=== PATIENT | female | born 1995 | race Two or more races ===

== ENCOUNTER 2019-02-06 21:29 | Inpatient (IN) | payer SELFPAY ==
[~2019-02-06] VITALS: Ht 154.9 cm; Wt 70.8 kg
[2019-02-06] MEDS: METHYLERGONOVINE MALEATE 0.2 MG TABLET PO SCH (21:00)
[~2019-02-06 21:29] MED LIST: FERR325T14 PO; PREN-6 PO
[2019-02-06] MEDS ORDERED: IV RINGERS,LACTATED 1000ML 1,000 ML IV SCH (21:39)
[2019-02-06] MEDS ORDERED: 0.9 % SODIUM CHLORIDE 10 ML DISP.SYRIN. IV PRN (21:45)
[2019-02-06] MEDS ORDERED: NALBUPHINE 10 MG/ML AMPUL. IV PRN ×2 (21:45)
[2019-02-06] MEDS ORDERED: ACETAMINOPHEN 325 MG TABLET. PO PRN (21:45)
[2019-02-06] MEDS ORDERED: MAG HYDROX/ALUMINUM HYD/SIMETH 30 ML ORAL.SUSP PO PRN (21:45)
[2019-02-06] MEDS ORDERED: fentaNYL PF VIAL 100 MCG/2 ML VIAL IV PRN ×3 (21:45)
[2019-02-06] MEDS ORDERED: BUTORPHANOL 2 MG/ML VIAL. IV PRN ×2 (21:45)
[2019-02-06] MEDS ORDERED: OXYTOCIN 30 UNIT/500 ML PREMIX 500 ML IV PRN (21:45)
[2019-02-06] MEDS ORDERED: ONDANSETRON PF 4 MG/2 ML VIAL. IV PRN (21:45)
[2019-02-06 21:51] VITALS: BP 125/75
[2019-02-06 22:39] LABS: BILIRUBIN,URINE NEGATIVE (NEG); CLARITY,URINE CLEAR; COLOR,URINE YELLOW; NITRITE,URINE NEGATIVE (NEG); PROTEIN,URINE 100 mg/dL (NEG-TRACE)
[2019-02-06 22:43] LABS: BACTERIA,URINE FEW /HPF (0-FEW); RBC,URINE 0 /HPF (0-2); SQUAMOUS EPITHELIAL CELL,UR MOD /LPF
[2019-02-06 22:46] LABS: BASO % 0 % (0-3); EOS # 0.1 x10^3/uL (0.0-0.7); EOS % 1 % (0-3); HEMATOCRIT 22.2 % (36.0-47.0); LYMPH # 1.7 x10^3/uL (1.0-4.8); LYMPH % 20 % (24-48); MEAN CORPUSCULAR HEMOGLOBIN 19 pg (25-35); MEAN CORPUSCULAR HGB CONC 31 g/dL (31-37); MEAN CORPUSCULAR VOLUME 62 fL (79-100); MONO # 0.7 x10^3/uL (0.0-1.1); MONO % 8 % (0-9); NEUT # 6.1 x10^3uL (1.8-7.7); NEUT % 71 % (31-73); PLATELET COUNT 120 x10^3/uL (140-400); RED BLOOD COUNT 3.59 x10^6/uL (3.50-5.40); RED CELL DISTRIBUTION WIDTH 19.5 % (11.5-14.5); WHITE BLOOD COUNT 8.7 x10^3/uL (4.0-11.0)
[2019-02-06 22:47] LABS: HEMOGLOBIN 6.9 g/dL (12.0-15.5)
[2019-02-06 23:02] LABS: PLT ESTIMATE ADEQUATE (ADEQUATE)
[2019-02-06 23:04] LABS: ANISOCYTOSIS SLIGHT; HYPOCHROMIA MOD; MICROCYTOSIS MARKED; OVALOCYTES FEW; POIKILOCYTOSIS SLIGHT
[2019-02-07 02:12] VITALS: BP 117/64
[2019-02-07 02:26] VITALS: BP 116/59
[2019-02-07 03:22] VITALS: BP 121/58
[2019-02-07] MEDS: IV RINGERS,LACTATED 1000ML 1,000 ML IV SCH ×2 (03:45→10:23)
[2019-02-07] MEDS ORDERED: OXYTOCIN 30 UNIT/500 ML PREMIX 500 ML IV PRN ×2 (06:30→12:30)
[2019-02-07 07:30] LABS: BARBITURATES NEG (NEG); BENZODIAZEPINES NEG (NEG); CANNABINOIDS NEG (NEG); COCAINE NEG (NEG); METHADONE NEG (NEG); OPIATES NEG (NEG); PHENCYCLIDINE NEG (NEG)
[2019-02-07 07:32] LABS: AMPHETAMINE/METHAMPHETAMINE NEG (NEG)
[2019-02-07 08:21] LABS: BASO % 0 % (0-3); EOS % 0 % (0-3); HEMATOCRIT 23.9 % (36.0-47.0); HEMOGLOBIN 7.5 g/dL (12.0-15.5); LYMPH # 1.7 x10^3/uL (1.0-4.8); LYMPH % 18 % (24-48); MEAN CORPUSCULAR HEMOGLOBIN 20 pg (25-35); MEAN CORPUSCULAR HGB CONC 31 g/dL (31-37); MEAN CORPUSCULAR VOLUME 64 fL (79-100); MONO # 0.6 x10^3/uL (0.0-1.1); MONO % 6 % (0-9); NEUT # 7.1 x10^3uL (1.8-7.7); NEUT % 75 % (31-73); PLATELET COUNT 112 x10^3/uL (140-400); RED BLOOD COUNT 3.72 x10^6/uL (3.50-5.40); RED CELL DISTRIBUTION WIDTH 21.2 % (11.5-14.5); WHITE BLOOD COUNT 9.5 x10^3/uL (4.0-11.0)
--- NOTE | 2019-02-07 12:27 | PDOC ---
VAGINAL DELIVERY DATE DATE: 02/07/19 TIME: 12:25 : 3 Para: 2 EDC: February 25, 2019 VAGINAL DELIVERY: VTX PLACENTA: Spontaneous SEX: Female WEIGHT Weight [ ] Nuchal Cord: No PAIN: Natural EPISIOTOMY: No EXTENSION: No EBL 300cc COMPLICATIONS None CONDITION Stable Signs of Intrauterine Infectio: None Shoulder Dystocia: No DIAGNOSIS JASON Rogel MD Feb 07, 2019 12:27
[2019-02-07] MEDS ORDERED: MAGNESIUM HYDROXIDE 2,400 MG/30 ML ORAL.SUSP. PO PRN (12:30)
[2019-02-07] MEDS ORDERED: MAG HYDROX/ALUMINUM HYD/SIMETH 30 ML ORAL.SUSP PO PRN (12:30)
[2019-02-07] MEDS ORDERED: SIMETHICONE 80 MG TAB.CHEW PO PRN (12:30)
[2019-02-07] MEDS ORDERED: 0.9 % SODIUM CHLORIDE 10 ML DISP.SYRIN. IV PRN (12:30)
[2019-02-07] MEDS ORDERED: ZOLPIDEM 5 MG TABLET. PO PRN (12:30)
[2019-02-07] MEDS ORDERED: IBUPROFEN 400 MG TABLET. PO PRN (12:30)
[2019-02-07] MEDS ORDERED: PHENYLEPH/MINERAL OIL/PETROLAT RECTAL OINTMENT 28GM TUBE. RC PRN (12:30)
[2019-02-07] MEDS ORDERED: diphenhydrAMINE HCL 25 MG CAPSULE PO PRN (12:30)
[2019-02-07] MEDS ORDERED: BENZOCAINE 20% TOPICAL AEROSOL SPRAY 57GM CAN. TP PRN (12:30)
[2019-02-07] MEDS ORDERED: ACETAMINOPHEN 325 MG TABLET. PO PRN (12:30)
[2019-02-07] MEDS ORDERED: HYDROCORTISONE 1% TOPICAL OINTMENT 30GM TUBE. TP PRN (12:30)
--- NOTE | 2019-02-07 12:33 | PDOC1 ---
OB - History Hx of Present Care: Good Care Ultrasounds: Normal mid trimester US Obstetrical Complications: None Medical Complications: None Past Family/Social History * Past Medical, Surgical, Family and Obstetric Histories reviewed from chart. Blood Type: O+ Rubella: Immune RPR/VDRL: Negative GBS Status: Negative HBsAG: Negative OB - Chief Complaint & HPI Date of Admission: Date of Admission: Feb 06, 2019 at 21:29 Chief Complaint/History : 3 Para: 2 EDC: February 25, 2019 Reason for admission: rupture of membranes Admission Nurse Assessment Rev: Yes OB - Admission Exam Physical Exam Vitals: VS - Last 72 Hours, by Label Date Time Temp Pulse Resp B/P (MAP) Pulse Ox O2 Delivery O2 Flow Rate FiO2 02/07/19 10:23 16 Room Air 02/07/19 03:22 98.6 106 20 121/58 98.6 02/07/19 02:26 98.7 118 20 116/59 98.7 02/07/19 02:12 98.6 104 20 117/64 98.6 02/06/19 21:51 98.7 103 18 125/75 (92) Room Air 98.7 HEENT: Normal, Nasal Mucosa Normal, Oropharynx Normal, Moist Membranes, Fontanelles Normal Heart: Regular Rate Lungs: Clear Extremities: Normal Pulses, No tenderness or swelling Reflexes: Normal Cervical Dilatation: 2cm Effacement: 25% Membranes: Ruptured Amniotic Fluid: Clear Heart Rate: Normal Accelerations: Accelerations Present Decelerations: Variable decelerations Short Term Variability: Present Equipment Maintenance Superintendent Variability: Moderate Assessment/Plan Assessment/Plan TIUP SROM Augment ACSVD JASON RAINEY MD Feb 07, 2019 12:33
[2019-02-07] MEDS: IBUPROFEN 400 MG TABLET. PO SCH ×2 (14:45→22:00)
[2019-02-07 15:05] VITALS: BP 108/63
[2019-02-07 16:50] VITALS: BP 103/58
[2019-02-07] MEDS ORDERED: FERROUS SULFATE 325 MG TABLET. PO SCH (17:00)
[2019-02-07] MEDS: METHYLERGONOVINE MALEATE 0.2 MG TABLET PO SCH (21:00)
[2019-02-07 21:30] VITALS: BP 108/67
[2019-02-08 05:16] VITALS: BP 119/73
--- NOTE | 2019-02-08 15:34 | PDOC ---
Provider Note Provider Note Doing well Uterus NTTP FU in AM Vital Sign - Last 24 Hours 02/07/19 02/07/19 02/08/19 16:50 21:30 05:16 Temp 97.9 98.4 97.9 97.9 98.4 97.9 Pulse 89 99 88 Resp 18 18 18 B/P (MAP) 103/58 (73) 108/67 (81) 119/73 (88) Pulse Ox 97 95 97 O2 Delivery Room Air Room Air Room Air CBC - BMP 02/08/19 06:25 JASON RAINEY MD Feb 08, 2019 15:34
[2019-02-08 17:05] VITALS: BP 122/74
[2019-02-08 21:07] VITALS: BP 116/65
[2019-02-09 05:12] VITALS: BP 112/70
--- NOTE | 2019-02-09 06:51 | NUR ---
Fentanyl PURCHASER wasted in front of Inez Valentin RN 4 mls. Unable to waste in the [employer] and the [employer]. Inez Delgado started the PURCHASER. Stopped at 0530.
[2019-02-09 08:21] LABS: BASO % 0 % (0-3); EOS # 0.1 x10^3/uL (0.0-0.7); EOS % 1 % (0-3); HEMATOCRIT 23.7 % (36.0-47.0); HEMOGLOBIN 7.3 g/dL (12.0-15.5); LYMPH # 1.9 x10^3/uL (1.0-4.8); LYMPH % 20 % (24-48); MEAN CORPUSCULAR HEMOGLOBIN 20 pg (25-35); MEAN CORPUSCULAR HGB CONC 31 g/dL (31-37); MEAN CORPUSCULAR VOLUME 65 fL (79-100); MONO # 0.7 x10^3/uL (0.0-1.1); MONO % 7 % (0-9); NEUT # 6.7 x10^3uL (1.8-7.7); NEUT % 72 % (31-73); PLATELET COUNT 119 x10^3/uL (140-400); RED BLOOD COUNT 3.64 x10^6/uL (3.50-5.40); RED CELL DISTRIBUTION WIDTH 21.6 % (11.5-14.5); WHITE BLOOD COUNT 9.4 x10^3/uL (4.0-11.0)
--- NOTE | 2019-02-09 08:44 | PDOC3 ---
OB DISCHARGE SUMMARY DATE OF ADMISSION: 02/07/19 DATE OF DISCHARGE: 02/09/19 REASON FOR ADMISSION: Onset of labor INTRAPARTUM PROCEDURES: Spontanous Vag Deliv DISCHARGE DIAGNOSIS: Term Delivered DISCHARGE INFORMATION: Activity (ad juvencio ), Diet (regular), Instructions (pelvic rest x 6 weeks) HOSPITAL COURSE Term gestation delivered vaginally without complications. JADE KAY Jr, MD February 09, 2019 08:44
[2019-02-09] MEDS ORDERED: NAPR-514 PO (08:46)
[2019-02-09] MEDS ORDERED: FERR325T14 PO (08:46)
--- NOTE | 2019-02-09 08:46 | DISCH ---
DISCHARGE INSTRUCTIONS Condition on Discharge Condition on Discharge: Stable Activity After Discharge Activity Instructions for Disc: Activity as tolerated Bathing Instructions: No Tub Bath until see Lifting Instructions after Dis: No heavy lifting, No pulling or pushing, Do not lift >10 pounds Exercise Instruction after Dis: Walk 15 min, 3 x per day Driving Instructions after Dis: Do not drive today Weight Bearing Status after Di: As tolerated Diet after Discharge Diet after Discharge: Regular Diet Texture: Regular Checks after Discharge Checks after discharge: Check your Temp as needed Contacting the [facility] after DC Call your doctor for: Concerns you may have Follow-Up Follow up with: Dr. Eckert in 1 week Treatment/Equipment after DC Adaptive Equipment Issued: None JADE KAY Jr, MD February 09, 2019 08:46
[2019-02-09 11:20] VITALS: BP 117/74
[2019-02-09 17:00] VITALS: BP 118/72
== END 2019-02-09 17:30 | disposition home or self-care (01) | DRG 807 ==
LOC: 3 SO LND 21:29 → OBSVTOIN 21:29 → 3 NORTH 02-07 15:05
PROVIDERS: ADMIT Specialist; ATTEND Specialist
PROC: 10E0XZZ Delivery of Products of Conception, External Approach (ICD-10-PCS; principal; 2019-02-07)
PROC: 3E033VJ Introduction of Other Hormone into Peripheral Vein, Percutaneous Approach (ICD-10-PCS; 2019-02-07)
DX: O80 Encounter for full-term uncomplicated delivery (principal); Z37.0 Single live birth; Z3A.38 38 weeks gestation of pregnancy
CPT/HCPCS: 36415; 80307; 81001; 85014; 85025; 86592; 86850; 86900; 86901; 86920; 87086; 92585; G0378; J2590; J3010; J7120; P9016